=== PATIENT | female | born 1995 ===

== ENCOUNTER 2018-04-08 13:08 | Emergency (ER) | payer SELFPAY ==
--- NOTE | 2018-04-08 13:28 | ED Physician Documentation ---
Chest Pain - HISTORIAN Historian: patient, other ([employer] at [facility]) - [facility] Stated Complaint: CP Chief Complaint: Chest Pain Additional Information: FIBRE TECHNOLOGIST from [facility] called to give report on pt she had already sent to this ER, POV. Pt has had L sided CP since 04/03, which radiaters into her left arm. I advised that FIBRE TECHNOLOGIST that I could not do a timely cardiac evaluation as Trop machine not working, requiring blood to be transported to [place]. The [facility] FIBRE TECHNOLOGIST said she would rty to get in touch with pt who was already en route. Pain began 04/03 while she was watching TV. [place] sharp. Radiated into left tricep area and feels like arm is going numb - this continues. The next day she had no pain. On 04/05 and since, pain is present and has today become pressure. Pain is worse with activity like walking, and improves with rest. Denies diaphoresis, palpitations. Never had these sensations before. No pain at the time of exam. No treatment attempted. No medical HX. No FH, but biologic F not known. 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 Denies unusual or vigorous physical activity. No other modifying factors or associated signs. Onset: days ago Last known Well Date: 04/02/18 Last Known Well Time: 22:30 - ROS CONST: none - PAST HX RI risk factors: no pertinent history Neuro deficit: none Surgeries/Procedures: none Allergies/Adverse Reactions: Allergies Allergy/AdvReac Type Severity Reaction Status Date / Time No Known Allergies Allergy Verified 04/08/18 13:24 Home Medications: Ambulatory Orders Medication Instructions Recorded NK 04/08/18 - SOCIAL HX Smoking History: other (marijuana) Drug Use: marijuana - FAMILY HX Family HX: none (see above, F not known) - REVIEWED ASSESSMENTS Nursing Assessment Reviewed: Yes Vitals Reviewed: Yes Progress - Progress Progress: Report Submission Date: Apr 08, 2018 1:42:06 PM CDT Patient Study Name: MICHEL PÉREZ Date: Apr 08, 2018 1:21:27 PM CDT Modality Type: DX Gender: F Description: CHEST : 89 Institution: [facility] Physician: RUSTAM DEL CASTILLO - ER Examination: PA and lateral chest. History: Evaluate lung kong. PT STATES CHEST PAINS X 4 DAYS. PT STATES PAIN AND TIGHTNESS IN LEFT ARM ALONG WITH CHEST PAINS X 2 DAYS. PT IS NOT A SMOKER. (Hx) Findings: PA and lateral views of the chest demonstrates a normal cardiac and mediastinal silhouette. No focal infiltrate. No blunting of the costophrenic margins. Osseous structures are appropriate for age. Impression: No acute pulmonary process. Electronically signed on Apr 08, 2018 1:42:06 PM CDT by: Kenney Salas EKG: sinus rhythm, 60 bpm, no ischemic changes Pt discharged as she has had the same pain for the last six days, minus day 2. First Trop I negative, second will not be resulted to us for approximately two hours due to machine malfunction. Has slept most of the time while in the ER. ED Results Lab/Radiology - Orders Orders: ED Orders Category Date Time Status Continuous EKG monitoring Q1H Care 04/08/18 13:[address] IV Lock 1T Care 04/08/18 13:11 Active CHEST 2VIEW [RAD] Stat Exams 04/08/18 Ordered CBC/PLATELET/DIFF Routine Lab 04/08/18 Ordered CMP Routine Lab 04/08/18 Ordered TROPONIN I (cTnI) Stat Lab 04/08/18 Ordered URINALYSIS Routine Lab 04/08/18 Ordered EKG WITH COMPARISON Stat Ther 04/08/18 Ordered Chest Pain Physical Exam - EXAM General Appearance: alert, mild distress EENT: eye inspection normal, no signs of dehydration Neck: nml inspection (non tender) Respiratory: no resp. distress, chest non-tender, nml breath sounds CVS: reg. rate & rhythm, no murmur Skin: warm/dry, normal color Extremities: non-tender, normal range of motion (gait and stance), no evidence of injury, no edema Neuro: CN's nml as tested, motor nml, sensation nml, cognition normal Discharge Clincal Impression: Chest pain Qualifiers: Chest pain type: other chest pain Qualified Code(s): R07.89 - Other chest pain; R07.8 - Other chest pain Referrals: Primary Doctor,No [Primary Care Provider] - 2 Days Additional Instructions: Your lab test results, chest x ray and EKG were reassuring. Return to the ER immediately if your pain gets worse, or if you have difficulty breathing. Call the ER after 6:30 pm today to check on the remaining lab test result. Condition: Good Disposition: 01 HOME, SELF-CARE Decision to Admit: NO Decision Time: 16:20
[2018-04-08 13:48] LABS: BASOPHILS % 0.4 (0.0-1.5); EOSINOPHILS % 2.6 % (0.0-6.8); MEAN CORPUSCULAR HEMOGLOBIN 30.3 pg (28.0-34.0); MONOCYTES % 6.9 % (0.0-11.0); NEUTROPHILS # 5.8 # k/uL (1.4-7.7)
[2018-04-08 14:28] LABS: eGFR (Non-African) > 60
[2018-04-08 15:41] LABS: TROPONIN T <0.010 ng/mL (<0.010)
[2018-04-08 16:28] VITALS: BP 118/84
--- NOTE | 2018-04-08 17:29 | Diagnostic Imaging Report ---
RUSTAM DEL CASTILLO [facility] [address] [facility] [address] [address] Report Submission Date: Apr 08, 2018 1:42:06 PM CDT Patient Study Name: MICHEL PÉREZ Date: Apr 08, 2018 1:21:27 PM CDT Modality Type: DX Gender: F Description: CHEST : 89 Institution: [facility] Physician: RUSTAM DEL CASTILLO Examination: PA and lateral chest. History: Evaluate lung kong. PT STATES CHEST PAINS X 4 DAYS. PT STATES PAIN AND TIGHTNESS IN LEFT ARM ALONG WITH CHEST PAINS X 2 DAYS. PT IS NOT A SMOKER. (Hx) Findings: PA and lateral views of the chest demonstrates a normal cardiac and mediastinal silhouette. No focal infiltrate. No blunting of the costophrenic margins. Osseous structures are appropriate for age. Impression: No acute pulmonary process. Electronically signed on Apr 08, 2018 1:42:06 PM CDT by: Kenney CRUZ
[2018-04-08 17:34] LABS: TROPONIN T <0.010 ng/mL (<0.010)
[2018-04-09 08:39] LABS: APPEARANCE,URINE CLEAR (CLEAR); COLOR,URINE YELLOW (YELLOW)
[2018-04-09 08:40] LABS: OCCULT BLOOD,URINE NEGATIVE (NEGATIVE); UROBILINOGEN URINE 0.2 Eu (0.2-1.0)
[2018-04-09 09:42] LABS: CANNABINOIDS NON NEGATIVE ng/mL (< 50); METHYLENEDIOXYMETHAMPHETAMINE NEGATIVE ng/mL (<500)
== END 2018-04-08 16:27 | disposition home or self-care (01) ==
LOC: ED 13:08
DX: R07.89 Other chest pain (principal)
CPT/HCPCS: 71046; 80053; 80377; 81002; 84484; 85025; 99284; G0481; S1016